=== PATIENT | male | born 1940 | race Caucasian/White ===

== ENCOUNTER → 2017-08-28 | Outpatient (CLI) | payer MEDICARE ==
[~2017-08-28] MED LIST: ALLO300T PO; CANA100T PO; CARV12.52 PO; CHOL100011 PO; CHON250C PO; CLON0.1T PO; DIAZ10TA PO; FURO40TA6 PO; GLIP10TA13 PO; GLUC15006 PO; HYAL1CAP PO; INSU100I13 SC; LISI40TA PO; LOSA50TA6 PO; LUTE20TA PO; MAGN100T6 PO; METO5TAB5 PO; MULT-257 PO; OMEG1CAP23 PO; OMEP-110 PO; OXYC-307 PO; POTA20TA89 PO; REGADENOSON 0.4 MG/5 ML SYRINGE ONE; SAXA5TAB PO; TADA20TA PO; UBID300C PO; WARF10TA43 PO; WARF7.5T46 PO; [UNRECOGNIZED DRUG - CODE] IM; [UNRECOGNIZED DRUG - OTHER] IM
== END | disposition home or self-care (01) ==
LOC: CFH 07:05
PROVIDERS: ATTEND Internal Medicine Cardiovascular Disease
DX: I48.91 Unspecified atrial fibrillation (principal); I45.19 Other right bundle-branch block
CPT/HCPCS: 78452; 93017; 93306; A9502; J2785

== ENCOUNTER → 2017-11-06 | Outpatient (CLI) | payer MEDICARE ==
[~2017-11-06] MED LIST changes: -LOSA50TA6 PO; +LOSA50TA7 PO; -REGADENOSON 0.4 MG/5 ML SYRINGE ONE
== END | disposition home or self-care (01) ==
LOC: CVU 06:51
PROVIDERS: ATTEND Internal Medicine Cardiovascular Disease
DX: R60.9 Edema, unspecified (principal); I50.9 Heart failure, unspecified; I27.20 Pulmonary hypertension, unspecified; E11.9 Type 2 diabetes mellitus without complications; R53.83 Other fatigue; Z86.718 Personal history of other venous thrombosis and embolism
CPT/HCPCS: 93970

== ENCOUNTER → 2018-02-12 | Outpatient (CLI) | payer MEDICARE ==
[~2018-02-12] MED LIST changes: -CLON0.1T PO; +CLON0.1T22 PO
== END | disposition home or self-care (01) ==
LOC: RAD 13:14
PROVIDERS: ATTEND Registered Nurse
DX: J98.11 Atelectasis (principal); J90 Pleural effusion, not elsewhere classified; J96.10 Chronic respiratory failure, unspecified whether with hypoxia or hypercapnia; I51.7 Cardiomegaly
CPT/HCPCS: 71046

== ENCOUNTER → 2018-02-19 | Outpatient (CLI) | payer MEDICARE ==
[~2018-02-19] MED LIST changes: +LIDOCAINE-MPF 1%, 5ML ONE
== END | disposition home or self-care (01) ==
LOC: RAD 09:54
PROVIDERS: ATTEND Registered Nurse
DX: Z79.01 Long term (current) use of anticoagulants (principal)
CPT/HCPCS: 32555

== ENCOUNTER 2020-03-10 13:51 | Outpatient (CLI) | payer MEDICARE ==
[~2020-03-10 13:51] MED LIST changes: +ATOR20TA37 PO; +BUMEX PO; +CARTIA PO; +DIGOXIN PO; +EYE VIT; +IRON1TAB63 PO; +LANTIS SQ; -LIDOCAINE-MPF 1%, 5ML ONE; +LOSA50TA14 PO; -LOSA50TA7 PO
== END 2020-03-10 23:59 | disposition home or self-care (01) ==
LOC: CFH 13:51
PROVIDERS: ATTEND Internal Medicine Cardiovascular Disease
DX: I08.8 Other rheumatic multiple valve diseases (principal); I11.9 Hypertensive heart disease without heart failure; I42.9 Cardiomyopathy, unspecified
CPT/HCPCS: 93306

== ENCOUNTER 2020-04-06 13:08 | Day surgery (SDC) | payer MEDICARE ==
[~2020-04-06] VITALS: Ht 182.9 cm; Wt 105.0 kg
[~2020-04-06 13:08] MED LIST changes: -LISI40TA PO; +LISI40TA9 PO; -OXYC-307 PO; +OXYC-380 PO
[2020-04-06] MEDS ORDERED: DIPHENHYDRAMINE 50 MG/ML, 1ML IVPush ONE (13:30)
[2020-04-06] MEDS ORDERED: SODIUM CHLORIDE 0.9% 1,000 ML IV SCH (13:30)
[2020-04-06] MEDS ORDERED: BUME2TAB3 PO (13:47)
[2020-04-06] MEDS ORDERED: MULT1TAB57 PO (13:47)
[2020-04-06] MEDS ORDERED: METO25TA91 PO (13:47)
[2020-04-06] MEDS ORDERED: CHOL10003 PO (13:47)
[2020-04-06] MEDS ORDERED: DILT120C64 PO (13:47)
[2020-04-06] MEDS ORDERED: POTA20TA6 PO (13:47)
[2020-04-06 14:01] LABS: BASOPHILS % (AUTO) 1 % (0-1); EOSINOPHILS % (AUTO) 9 % (1-7); LYMPHOCYTES % (AUTO) 17 % (22-44); MEAN CORPUSCULAR HEMOGLOBIN 31.6 pg (27.5-34.5); MEAN CORPUSCULAR HGB CONC 32.8 g/dL (33.2-36.2); MEAN PLATELET VOLUME 9.5 fL (7.4-10.4); MONOCYTES % (AUTO) 9 % (2-9); NEUTROPHILS % (AUTO) 64 % (42-75); PLATELET COUNT 132 x10^3/uL (130-400); RED BLOOD COUNT 3.81 x10^6/uL (4.38-5.82); RED CELL DISTRIBUTION WIDTH 16.3 % (9.4-14.8)
[2020-04-06 14:05] LABS: MD NO
[2020-04-06 14:11] LABS: ANION GAP 5 mmol/L (5-15); CALCIUM 9.3 mg/dL (8.5-10.1); CHLORIDE 106 mmol/L (98-107); CREATININE 1.78 mg/dL (0.7-1.3); INTERNATIONAL NORMALIZED RATIO 1.38 (0.93-1.1); PROTHROMBIN TIME 14.7 Seconds (9.6-11.5)
[2020-04-06] MEDS ORDERED: FENTANYL PF 100 MCG/2ML ONE (15:28)
[2020-04-06] MEDS ORDERED: LIDOCAINE 2%, 20ML ONE (15:28)
[2020-04-06] MEDS ORDERED: MIDAZOLAM 1 MG/ML, 5ML ONE (15:28)
== END 2020-04-06 17:29 | disposition home or self-care (01) ==
LOC: CACL 13:08
PROVIDERS: ATTEND Internal Medicine Cardiovascular Disease
DX: I27.23 Pulmonary hypertension due to lung diseases and hypoxia (principal); I48.91 Unspecified atrial fibrillation; I10 Essential (primary) hypertension; E11.9 Type 2 diabetes mellitus without complications; E78.5 Hyperlipidemia, unspecified; Z79.4 Long term (current) use of insulin; Z91.040 Latex allergy status; Z91.048 Other nonmedicinal substance allergy status; Z79.899 Other long term (current) drug therapy; Z79.01 Long term (current) use of anticoagulants; Z98.890 Other specified postprocedural states; Z87.891 Personal history of nicotine dependence
CPT/HCPCS: 36415; 80048; 82330; 82803; 82947; 83880; 84132; 84295; 85014; 85025; 85610; 93451; C1769; C1894; J2250; J3010

== ENCOUNTER 2020-10-01 15:50 | Inpatient (IN) | payer MEDICARE ==
[~2020-10-01] VITALS: Ht 182.9 cm; Wt 94.2 kg
[~2020-10-01 15:50] MED LIST changes: +BUME2TAB3 PO; +CHOL10003 PO; +DILT120C64 PO; +METO25TA91 PO; +MULT1TAB58 PO; -OXYC-380 PO; +OXYC-501 PO; +POTA-143 PO
[2020-10-01 17:17] LABS: BASOPHILS % (AUTO) 1 % (0-1); EOSINOPHILS % (AUTO) 21 % (1-7); LYMPHOCYTES % (AUTO) 20 % (22-44); MEAN CORPUSCULAR HEMOGLOBIN 32.1 pg (27.5-34.5); MEAN CORPUSCULAR HGB CONC 33.4 g/dL (33.2-36.2); MEAN PLATELET VOLUME 10.2 fL (7.4-10.4); MONOCYTES % (AUTO) 8 % (2-9); NEUTROPHILS % (AUTO) 50 % (42-75); PLATELET COUNT 143 x10^3/uL (130-400); RED BLOOD COUNT 4.11 x10^6/uL (4.38-5.82); RED CELL DISTRIBUTION WIDTH 16.1 % (9.4-14.8)
[2020-10-01 17:23] LABS: ALBUMIN 3.9 g/dL (3.4-5.0); ANION GAP 8 mmol/L (5-15); CALCIUM 9.3 mg/dL (8.5-10.1); CHLORIDE 100 mmol/L (98-107); CREATININE 2.29 mg/dL (0.7-1.3)
--- NOTE | 2020-10-01 17:26 | NUR ---
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
--- NOTE | 2020-10-01 17:27 | NUR ---
PT TO ROOM FROM [facility], CHANGED INTO GOWN, MONITORS IN PLACE. PT C/O RASH/ITCHINESS OVER ALL EXTREMITIES FOR A COUPLE DAYS. PT STATES HE WENT TO [facility] AND WAS PLACED ON ANTIBX BUT IT IS NOT HELPING. PT DENIES PAIN BUT STATES THE ITCHINESS IS DRIVING HIM CRAZY. CALL LIGHT WITHIN REACH, AT BS.
[2020-10-01 18:07] LABS: INTERNATIONAL NORMALIZED RATIO 2.34 (0.93-1.1)
[2020-10-01 18:29] LABS: TROPONIN I 0.022 ng/mL (0.000-0.045)
--- NOTE | 2020-10-01 18:45 | NUR ---
FIRST ENCOUNTER WITH PATIENT. PATIENT LYING IN STRETCHER TALKING WITH AT BEDSIDE. THIS RN TO PLACE IV FOR ABX. DENIES ANY NEEDS AT THIS TIME. NAD. VSS. CALL BALES IN REACH. BED IN LOW POSITION. WILL CONTINUE TO MONITOR.
--- NOTE | 2020-10-01 18:46 | NUR ---
REPORT TO ABDOUL KWON
[2020-10-01] MEDS ORDERED: VANCOMYCIN PER PHARMACY MC PRN ×3 (19:00→20:45)
[2020-10-01] MEDS ORDERED: PLEASE ENTER ALLERGIES MC SCH (19:00)
[2020-10-01] MEDS ORDERED: AMPICILLIN/SULBACTAM 3 GM in SODIUM CHLORIDE 0.9% 100 ML IV ONE (19:00)
[2020-10-01] MEDS ORDERED: BISACODYL 10 MG SUPP PR PRN (19:30)
[2020-10-01] MEDS ORDERED: POLYETHYLENE GLYCOL 17 GM PACKET PO PRN (19:30)
[2020-10-01] MEDS ORDERED: VANCOMYCIN 2,500 MG in SODIUM CHLORIDE 0.9% 500 ML IV ONE (19:30)
[2020-10-01] MEDS ORDERED: POTASSIUM CHLORIDE 20 MEQ TAB.ER.PRT PO ONE (19:30)
[2020-10-01] MEDS ORDERED: ONDANSETRON ODT 4 MG PO PRN (19:30)
[2020-10-01] MEDS ORDERED: ACETAMINOPHEN 325 MG TABLET PO PRN (19:30)
--- NOTE | 2020-10-01 19:54 | NUR ---
ATTEMPTED TO CALL REPORT X1. STATES HE WILL CALL THIS RN BACK.
--- NOTE | 2020-10-01 20:11 | NUR ---
REPORT GIVEN TO ABDOUL GUILLEN ROOM [id number]
[2020-10-01 20:45] VITALS: BP 133/78
[2020-10-01] MEDS ORDERED: PHARMACOKINETIC CONSULTATION MC ONE (21:30)
[2020-10-01] MEDS ORDERED: PHARMACOKINETIC MONITORING MC PRN (21:30)
[2020-10-01] MEDS ORDERED: DIGOXIN PO SCH (22:30)
[2020-10-01] MEDS: BUMETANIDE 1 MG TABLET PO SCH (22:30)
[2020-10-01] MEDS ORDERED: METOPROLOL SUCCINATE 25 MG TAB.ER.24H PO SCH (22:30)
[2020-10-01] MEDS ORDERED: MAGNESIUM SULFATE PMX 2GM/50ML 50 ML IV ONE (22:30)
[2020-10-01] MEDS ORDERED: WARFARIN 7.5 MG TABLET PO-COUM SCH (22:30)
[2020-10-01] MEDS: ATORVASTATIN 10 MG TABLET PO SCH (22:58)
[2020-10-01] MEDS: DILTIAZEM 120 MG CAP.ER.24H PO SCH (22:59)
[2020-10-01] MEDS: SODIUM CHLORIDE FLUSH 10ML SYR IVF SCH (23:00)
[2020-10-01] MEDS ORDERED: DIPHENHYDRAMINE 50 MG/ML, 1ML IVPush ONE (23:00)
[2020-10-01] MEDS: INSULIN GLARGINE 100 UNITS/ML, PEN SQ-INSULIN SCH (23:32)
[2020-10-02] MEDS: AMPICILLIN/SULBACTAM 1,500 MG in SODIUM CHLORIDE 0.9% 50 ML IV SCH ×4 (01:02→19:23)
[2020-10-02 03:02] VITALS: BP 127/70
[2020-10-02 05:50] LABS: BASOPHILS % (AUTO) 1 % (0-1); EOSINOPHILS % (AUTO) 15 % (1-7); LYMPHOCYTES % (AUTO) 12 % (22-44); MEAN CORPUSCULAR HEMOGLOBIN 32.2 pg (27.5-34.5); MEAN CORPUSCULAR HGB CONC 33.8 g/dL (33.2-36.2); MEAN PLATELET VOLUME 10.2 fL (7.4-10.4); MONOCYTES % (AUTO) 9 % (2-9); NEUTROPHILS % (AUTO) 63 % (42-75); PLATELET COUNT 116 x10^3/uL (130-400); RED BLOOD COUNT 3.57 x10^6/uL (4.38-5.82); RED CELL DISTRIBUTION WIDTH 15.6 % (9.4-14.8)
[2020-10-02 05:54] LABS: ANION GAP 5 mmol/L (5-15); CHLORIDE 103 mmol/L (98-107)
[2020-10-02] MEDS ORDERED: POTASSIUM CHLORIDE 20 MEQ TAB.ER.PRT PO ONE (07:00)
[2020-10-02] MEDS ORDERED: UBIDECARENONE 300 MG PO SCH (09:00)
[2020-10-02] MEDS ORDERED: TEMPLATE NON-FORMULARY MED. (Glucosamine Hcl** 1,500 MG) PO SCH (09:00)
[2020-10-02] MEDS ORDERED: METOLAZONE 5 MG TABLET PO SCH (09:00)
[2020-10-02] MEDS ORDERED: ALLOPURINOL 300 MG TABLET PO SCH (09:00)
[2020-10-02] MEDS ORDERED: TEMPLATE NON-FORMULARY MED. (Lutein** 20 MG) PO SCH (09:00)
[2020-10-02] MEDS ORDERED: DIGO125T85 PO (09:47)
[2020-10-02] MEDS ORDERED: INSU100V8 SQ (09:47)
[2020-10-02] MEDS ORDERED: GLUC15006 PO (09:47)
[2020-10-02] MEDS ORDERED: [UNRECOGNIZED DRUG - OTHER] PO (09:47)
[2020-10-02] MEDS ORDERED: Chondroitin PO (09:47)
[2020-10-02] MEDS ORDERED: [UNRECOGNIZED DRUG - OTHER] PO (09:47)
[2020-10-02] MEDS ORDERED: ASCO125T PO (09:47)
[2020-10-02] MEDS ORDERED: IRON1TAB63 PO (09:47)
[2020-10-02] MEDS ORDERED: [UNRECOGNIZED DRUG - OTHER] PO (09:47)
[2020-10-02] MEDS ORDERED: ACET-1600 PO (09:47)
[2020-10-02] MEDS ORDERED: WARF10TA43 PO (09:47)
[2020-10-02 10:00] VITALS: BP 116/65
[2020-10-02] MEDS ORDERED: METOLAZONE 2.5 MG TABLET ONE ×2 (10:00→11:50)
[2020-10-02] MEDS: DILTIAZEM 120 MG CAP.ER.24H PO SCH ×2 (10:07→21:48)
[2020-10-02] MEDS: OMEPRAZOLE 20 MG CAPSULE.DR PO SCH (10:07)
[2020-10-02] MEDS: POTASSIUM CHLORIDE 20 MEQ TAB.ER.PRT PO SCH ×2 (10:08→21:46)
[2020-10-02] MEDS: MULTIVITAMIN 1 TABLET PO SCH (10:10)
[2020-10-02] MEDS: BUMETANIDE 1 MG TABLET PO SCH ×2 (10:11→12:44)
[2020-10-02] MEDS: CHOLECALCIFEROL 1,000 UNIT TABLET PO SCH (10:11)
[2020-10-02] MEDS: METOPROLOL SUCCINATE 100 MG TAB.ER.24H PO SCH ×2 (10:11→21:45)
[2020-10-02] MEDS: SENNA/DOCUSATE TABLET PO SCH (10:12)
[2020-10-02] MEDS: DIGOXIN 0.125 MG TABLET PO SCH (12:23)
[2020-10-02] MEDS: SODIUM CHLORIDE FLUSH 10ML SYR IVF SCH ×2 (12:24→21:44)
[2020-10-02] MEDS: METOLAZONE 5 MG TABLET PO SCH ×2 (12:28→21:00)
[2020-10-02] MEDS ORDERED: BUMETANIDE 1 MG TABLET ONE (12:39)
[2020-10-02 13:20] VITALS: BP 121/68
[2020-10-02] MEDS ORDERED: WARFARIN BIOPROSTHETIC VALVE PROTOCOL 2-3 XX PRN (16:00)
[2020-10-02 16:28] LABS: INTERNATIONAL NORMALIZED RATIO 2.37 (0.93-1.1); PROTHROMBIN TIME 24.3 Seconds (9.6-11.5)
[2020-10-02] MEDS ORDERED: WARFARIN 7.5 MG TABLET PO-COUM ONE (18:00)
[2020-10-02] MEDS ORDERED: VANCOMYCIN 2,000 MG in SODIUM CHLORIDE 0.9% 500 ML IV SCH (20:00)
[2020-10-02 20:54] VITALS: BP 120/75
[2020-10-02] MEDS: INSULIN GLARGINE 100 UNITS/ML, PEN SQ-INSULIN SCH (21:44)
[2020-10-02] MEDS: ALLOPURINOL 300 MG TABLET PO SCH (21:47)
[2020-10-02] MEDS: ATORVASTATIN 10 MG TABLET PO SCH (21:49)
[2020-10-02] MEDS: DIPHENHYDRAMINE/ZINC CRM 2%, 30GM TP PRN (22:15)
[2020-10-03] MEDS: AMPICILLIN/SULBACTAM 1,500 MG in SODIUM CHLORIDE 0.9% 50 ML IV SCH ×4 (01:27→19:55)
[2020-10-03 06:38] LABS: INTERNATIONAL NORMALIZED RATIO 2.47 (0.93-1.1); PROTHROMBIN TIME 25.3 Seconds (9.6-11.5)
[2020-10-03 06:40] LABS: ANION GAP 8 mmol/L (5-15); CALCIUM 9.1 mg/dL (8.5-10.1); CHLORIDE 102 mmol/L (98-107); CREATININE 1.96 mg/dL (0.7-1.3)
[2020-10-03 07:30] LABS: BASOPHILS % (AUTO) 1 % (0-1); EOSINOPHILS % (AUTO) 18 % (1-7); LYMPHOCYTES % (AUTO) 17 % (22-44); MEAN CORPUSCULAR HEMOGLOBIN 31.4 pg (27.5-34.5); MEAN CORPUSCULAR HGB CONC 32.8 g/dL (33.2-36.2); MEAN PLATELET VOLUME 10.4 fL (7.4-10.4); MONOCYTES % (AUTO) 9 % (2-9); NEUTROPHILS % (AUTO) 55 % (42-75); PLATELET COUNT 124 x10^3/uL (130-400); RED BLOOD COUNT 3.72 x10^6/uL (4.38-5.82); RED CELL DISTRIBUTION WIDTH 15.8 % (9.4-14.8)
[2020-10-03 07:42] VITALS: BP 105/62
[2020-10-03 09:10] VITALS: BP 118/81
[2020-10-03] MEDS: OMEPRAZOLE 20 MG CAPSULE.DR PO SCH (09:18)
[2020-10-03] MEDS: CHOLECALCIFEROL 1,000 UNIT TABLET PO SCH (09:19)
[2020-10-03] MEDS: SENNA/DOCUSATE TABLET PO SCH (09:19)
[2020-10-03] MEDS: BUMETANIDE 1 MG TABLET PO SCH ×2 (09:19→12:03)
[2020-10-03] MEDS: MULTIVITAMIN 1 TABLET PO SCH (09:19)
[2020-10-03] MEDS: SODIUM CHLORIDE FLUSH 10ML SYR IVF SCH ×2 (09:19→19:55)
[2020-10-03] MEDS: DILTIAZEM 120 MG CAP.ER.24H PO SCH ×2 (09:20→21:01)
[2020-10-03] MEDS: METOLAZONE 5 MG TABLET PO SCH ×2 (09:21→21:00)
[2020-10-03] MEDS: POTASSIUM CHLORIDE 20 MEQ TAB.ER.PRT PO SCH ×2 (09:22→21:00)
[2020-10-03] MEDS: METOPROLOL SUCCINATE 100 MG TAB.ER.24H PO SCH ×2 (09:22→21:00)
[2020-10-03] MEDS: DIPHENHYDRAMINE/ZINC CRM 2%, 30GM TP PRN ×2 (12:03→21:00)
[2020-10-03 13:06] VITALS: BP 122/66
[2020-10-03] MEDS ORDERED: WARFARIN 7.5 MG TABLET PO-COUM ONE (18:00)
[2020-10-03 19:55] VITALS: BP 109/64
[2020-10-03] MEDS: ALLOPURINOL 300 MG TABLET PO SCH (21:00)
[2020-10-03] MEDS: ATORVASTATIN 10 MG TABLET PO SCH (21:00)
[2020-10-03] MEDS: INSULIN GLARGINE 100 UNITS/ML, PEN SQ-INSULIN SCH (21:02)
[2020-10-04 00:30] VITALS: BP 110/68
[2020-10-04] MEDS: AMPICILLIN/SULBACTAM 1,500 MG in SODIUM CHLORIDE 0.9% 50 ML IV SCH ×4 (01:27→20:19)
[2020-10-04] MEDS: SODIUM CHLORIDE FLUSH 10ML SYR IVF SCH ×2 (08:05→20:43)
[2020-10-04] MEDS: POTASSIUM CHLORIDE 20 MEQ TAB.ER.PRT PO SCH ×2 (08:06→20:43)
[2020-10-04] MEDS: DILTIAZEM 120 MG CAP.ER.24H PO SCH ×2 (08:06→20:43)
[2020-10-04] MEDS: MULTIVITAMIN 1 TABLET PO SCH (08:06)
[2020-10-04] MEDS: OMEPRAZOLE 20 MG CAPSULE.DR PO SCH (08:06)
[2020-10-04] MEDS: CHOLECALCIFEROL 1,000 UNIT TABLET PO SCH (08:06)
[2020-10-04] MEDS: DIGOXIN 0.125 MG TABLET PO SCH (08:07)
[2020-10-04] MEDS: SENNA/DOCUSATE TABLET PO SCH (08:07)
[2020-10-04] MEDS: METOPROLOL SUCCINATE 100 MG TAB.ER.24H PO SCH ×2 (08:07→20:44)
[2020-10-04] MEDS: BUMETANIDE 1 MG TABLET PO SCH ×2 (08:08→11:35)
[2020-10-04] MEDS: METOLAZONE 5 MG TABLET PO SCH ×2 (08:08→20:24)
[2020-10-04 08:14] VITALS: BP 123/70
[2020-10-04 08:36] LABS: BASOPHILS % (AUTO) 1 % (0-1); EOSINOPHILS % (AUTO) 22 % (1-7); LYMPHOCYTES % (AUTO) 18 % (22-44); MEAN CORPUSCULAR HEMOGLOBIN 31.3 pg (27.5-34.5); MEAN CORPUSCULAR HGB CONC 32.7 g/dL (33.2-36.2); MEAN PLATELET VOLUME 9.7 fL (7.4-10.4); MONOCYTES % (AUTO) 8 % (2-9); NEUTROPHILS % (AUTO) 51 % (42-75); PLATELET COUNT 157 x10^3/uL (130-400); RED BLOOD COUNT 4.14 x10^6/uL (4.38-5.82); RED CELL DISTRIBUTION WIDTH 16.3 % (9.4-14.8)
[2020-10-04 08:42] LABS: INTERNATIONAL NORMALIZED RATIO 2.42 (0.93-1.1); PROTHROMBIN TIME 24.8 Seconds (9.6-11.5)
[2020-10-04 08:43] LABS: ANION GAP 6 mmol/L (5-15); CALCIUM 9.8 mg/dL (8.5-10.1); CHLORIDE 102 mmol/L (98-107); CREATININE 1.95 mg/dL (0.7-1.3)
[2020-10-04] MEDS: DIPHENHYDRAMINE/ZINC CRM 2%, 30GM TP PRN (09:48)
[2020-10-04] MEDS ORDERED: DIPHENHYDRAMINE 25 MG CAPSULE PO ONE (11:30)
[2020-10-04 12:38] VITALS: BP 121/77
[2020-10-04] MEDS ORDERED: WARFARIN 7.5 MG TABLET PO-COUM ONE (18:00)
[2020-10-04 20:15] VITALS: BP 120/70
[2020-10-04] MEDS: ATORVASTATIN 10 MG TABLET PO SCH (20:43)
[2020-10-04] MEDS: ALLOPURINOL 300 MG TABLET PO SCH (20:44)
[2020-10-04] MEDS: INSULIN GLARGINE 100 UNITS/ML, PEN SQ-INSULIN SCH (20:57)
[2020-10-05 00:48] VITALS: BP 116/6
[2020-10-05] MEDS: AMPICILLIN/SULBACTAM 1,500 MG in SODIUM CHLORIDE 0.9% 50 ML IV SCH ×2 (01:39→08:22)
[2020-10-05] MEDS: DIPHENHYDRAMINE/ZINC CRM 2%, 30GM TP PRN ×2 (03:53→07:34)
[2020-10-05 05:03] LABS: INTERNATIONAL NORMALIZED RATIO 2.5 (0.93-1.1); PROTHROMBIN TIME 25.6 Seconds (9.6-11.5)
[2020-10-05 07:24] VITALS: BP 102/60
[2020-10-05] MEDS: BUMETANIDE 1 MG TABLET PO SCH ×2 (08:22→12:32)
[2020-10-05] MEDS: DILTIAZEM 120 MG CAP.ER.24H PO SCH ×2 (08:22→21:55)
[2020-10-05] MEDS: CHOLECALCIFEROL 1,000 UNIT TABLET PO SCH (08:23)
[2020-10-05] MEDS: METOLAZONE 5 MG TABLET PO SCH ×2 (08:23→21:00)
[2020-10-05] MEDS: METOPROLOL SUCCINATE 100 MG TAB.ER.24H PO SCH ×2 (08:24→21:55)
[2020-10-05] MEDS: POTASSIUM CHLORIDE 20 MEQ TAB.ER.PRT PO SCH ×2 (08:24→21:55)
[2020-10-05] MEDS: OMEPRAZOLE 20 MG CAPSULE.DR PO SCH (08:24)
[2020-10-05] MEDS: SODIUM CHLORIDE FLUSH 10ML SYR IVF SCH ×2 (08:24→22:09)
[2020-10-05] MEDS: SENNA/DOCUSATE TABLET PO SCH (08:24)
[2020-10-05] MEDS: MULTIVITAMIN 1 TABLET PO SCH (08:42)
[2020-10-05] MEDS: CLINDAMYCIN 300 MG CAPSULE PO SCH ×2 (12:31→18:24)
[2020-10-05 14:13] VITALS: BP 116/66
[2020-10-05] MEDS ORDERED: WARFARIN 7.5 MG TABLET PO-COUM ONE (18:00)
[2020-10-05 19:04] VITALS: BP 116/62
[2020-10-05] MEDS: INSULIN GLARGINE 100 UNITS/ML, PEN SQ-INSULIN SCH (21:54)
[2020-10-05] MEDS: ATORVASTATIN 10 MG TABLET PO SCH (21:55)
[2020-10-05] MEDS: ALLOPURINOL 300 MG TABLET PO SCH (21:55)
[2020-10-06] MEDS: CLINDAMYCIN 300 MG CAPSULE PO SCH ×2 (00:28→06:28)
[2020-10-06 00:31] VITALS: BP 123/72
[2020-10-06 05:22] LABS: INTERNATIONAL NORMALIZED RATIO 2.6 (0.93-1.1); PROTHROMBIN TIME 26.6 Seconds (9.6-11.5)
[2020-10-06 06:55] VITALS: BP 126/69
[2020-10-06 07:07] LABS: BASOPHILS % (AUTO) 1 % (0-1); EOSINOPHILS % (AUTO) 22 % (1-7); LYMPHOCYTES % (AUTO) 20 % (22-44); MEAN CORPUSCULAR HEMOGLOBIN 31.4 pg (27.5-34.5); MEAN CORPUSCULAR HGB CONC 33.1 g/dL (33.2-36.2); MEAN PLATELET VOLUME 10.4 fL (7.4-10.4); MONOCYTES % (AUTO) 7 % (2-9); NEUTROPHILS % (AUTO) 51 % (42-75); PLATELET COUNT 166 x10^3/uL (130-400); RED CELL DISTRIBUTION WIDTH 15.8 % (9.4-14.8)
[2020-10-06 07:15] LABS: ALBUMIN 3.7 g/dL (3.4-5.0); ANION GAP 5 mmol/L (5-15); CALCIUM 9.6 mg/dL (8.5-10.1); CHLORIDE 100 mmol/L (98-107); CREATININE 2.21 mg/dL (0.7-1.3)
[2020-10-06] MEDS: BUMETANIDE 1 MG TABLET PO SCH ×2 (07:42→11:45)
[2020-10-06] MEDS: CHOLECALCIFEROL 1,000 UNIT TABLET PO SCH (07:42)
[2020-10-06] MEDS: METOLAZONE 5 MG TABLET PO SCH (07:42)
[2020-10-06] MEDS: OMEPRAZOLE 20 MG CAPSULE.DR PO SCH (07:42)
[2020-10-06] MEDS: SODIUM CHLORIDE FLUSH 10ML SYR IVF SCH (07:42)
[2020-10-06] MEDS: DIGOXIN 0.125 MG TABLET PO SCH (07:42)
[2020-10-06] MEDS: METOPROLOL SUCCINATE 100 MG TAB.ER.24H PO SCH (07:42)
[2020-10-06] MEDS: MULTIVITAMIN 1 TABLET PO SCH (07:42)
[2020-10-06] MEDS: POTASSIUM CHLORIDE 20 MEQ TAB.ER.PRT PO SCH (07:42)
[2020-10-06] MEDS: DILTIAZEM 120 MG CAP.ER.24H PO SCH (07:43)
[2020-10-06] MEDS: SENNA/DOCUSATE TABLET PO SCH (07:43)
[2020-10-06] MEDS ORDERED: CLIN300C9 PO (11:24)
[2020-10-06] MEDS ORDERED: CLINDAMYCIN 300 MG CAPSULE PO SCH (12:00)
[2020-10-06] MEDS ORDERED: WARFARIN 7.5 MG TABLET PO-COUM ONE (18:00)
== END 2020-10-06 12:54 | disposition home or self-care (01) | DRG 602 ==
LOC: ED 19:32 → EDIP 19:36 → 4NE 20:37
PROVIDERS: ADMIT Student in an Organized Health Care Education/Training Program; ATTEND Internal Medicine
DX: L03.115 Cellulitis of right lower limb (principal); I50.33 Acute on chronic diastolic (congestive) heart failure; I13.0 Hypertensive heart and chronic kidney disease with heart failure and stage 1 through stage 4 chronic kidney disease, or unspecified chronic kidney disease; I48.20 Chronic atrial fibrillation, unspecified; L03.116 Cellulitis of left lower limb; N18.30 Chronic kidney disease, stage 3 unspecified; I27.20 Pulmonary hypertension, unspecified; E87.6 Hypokalemia; B95.61 Methicillin susceptible Staphylococcus aureus infection as the cause of diseases classified elsewhere; E11.22 Type 2 diabetes mellitus with diabetic chronic kidney disease; E11.51 Type 2 diabetes mellitus with diabetic peripheral angiopathy without gangrene; G47.33 Obstructive sleep apnea (adult) (pediatric); I87.2 Venous insufficiency (chronic) (peripheral); M10.9 Gout, unspecified; T50.2X5A Adverse effect of carbonic-anhydrase inhibitors, benzothiadiazides and other diuretics, initial encounter; Z66 Do not resuscitate; Z79.01 Long term (current) use of anticoagulants; Z79.4 Long term (current) use of insulin; Z80.6 Family history of leukemia; Z83.3 Family history of diabetes mellitus; Z96.643 Presence of artificial hip joint, bilateral; Z88.8 Allergy status to other drugs, medicaments and biological substances; Z91.048 Other nonmedicinal substance allergy status
CPT/HCPCS: 36415; 71045; 80048; 80069; 82040; 82962; 83036; 83735; 83880; 84484; 85025; 85610; 93005; 96365; 96375; G0378; J0295; J3370; J1200; J1815; J3475; J7040; Q0163

== ENCOUNTER → 2020-11-30 | Outpatient (CLI) | payer MEDICARE | END | disposition home or self-care (01) | LOC: LAB 16:30 | PROVIDERS: ATTEND Nurse Practitioner Family | DX: I13.0 Hypertensive heart and chronic kidney disease with heart failure and stage 1 through stage 4 chronic kidney disease, or unspecified chronic kidney disease (principal); N18.32 Chronic kidney disease, stage 3b; E11.22 Type 2 diabetes mellitus with diabetic chronic kidney disease; D63.1 Anemia in chronic kidney disease; N25.81 Secondary hyperparathyroidism of renal origin; E55.9 Vitamin D deficiency, unspecified; I50.22 Chronic systolic (congestive) heart failure; M10.9 Gout, unspecified; I27.20 Pulmonary hypertension, unspecified; Z79.899 Other long term (current) drug therapy ==